=== PATIENT | male | born 1995 | race Caucasian/White ===

== ENCOUNTER 2024-12-12 03:01 | Emergency (ER) | payer OTHER ==
[~2024-12-12] VITALS: Ht 175.3 cm; Wt 70.9 kg
[2024-12-12 03:04] VITALS: BP 131/74; PULSE 103; RESP 18; TEMP 98.6; O2SAT 99
[2024-12-12] MEDS: LIDOCAINE 1% 10 ML VIAL SQ ONE (03:48)
[2024-12-12] MEDS: IBUPROFEN 400 MG TABLET PO ONE (03:48)
[2024-12-12] MEDS: DOXYCYCLINE HYCLATE 100 MG TABLET PO ONE (03:48)
[2024-12-12] MEDS: ACETAMINOPHEN 500 MG TABLET PO ONE (03:48)
== END 2024-12-12 05:37 ==
LOC: EMS 03:06
DX: L02.414 Cutaneous abscess of left upper limb (principal); Z65.3 Problems related to other legal circumstances
CPT/HCPCS: 99284; 10060; J3490